=== PATIENT | female | born 1995 | race Two or more races ===

== ENCOUNTER 2021-05-07 14:12 | Outpatient (CLI) | payer OTHER | END 2021-05-07 14:23 | disposition home or self-care (01) | LOC: LAB 14:12 | PROVIDERS: ATTEND Emergency Medicine Pediatric Emergency Medicine | DX: Z03.818 Encounter for observation for suspected exposure to other biological agents ruled out (principal) ==

== ENCOUNTER 2021-06-07 11:21 | Outpatient (CLI) | payer OTHER | END 2021-06-07 12:19 | disposition home or self-care (01) | LOC: LAB 11:21 | PROVIDERS: ATTEND Internal Medicine | DX: Z34.90 Encounter for supervision of normal pregnancy, unspecified, unspecified trimester (principal) ==

== ENCOUNTER 2021-07-22 15:06 | Outpatient (CLI) | payer OTHER | END 2021-07-22 15:07 | disposition home or self-care (01) | LOC: LAB 15:06 | PROVIDERS: ATTEND General Practice | DX: R06.02 Shortness of breath (principal); Z03.818 Encounter for observation for suspected exposure to other biological agents ruled out; Z20.828 Contact with and (suspected) exposure to other viral communicable diseases ==

== ENCOUNTER 2021-07-29 13:48 | Emergency (ER) | payer OTHER ==
[~2021-07-29] VITALS: Ht 152.4 cm; Wt 70.3 kg
== END 2021-07-29 20:07 | disposition home or self-care (01) ==
LOC: ER 13:48
DX: S00.83XA Contusion of other part of head, initial encounter (principal); W18.2XXA Fall in (into) shower or empty bathtub, initial encounter; Y93.E1 Activity, personal bathing and showering; Y92.012 Bathroom of single-family (private) house as the place of occurrence of the external cause; Y99.8 Other external cause status

== ENCOUNTER 2021-08-09 08:00 | Outpatient (CLI) | payer OTHER | END 2021-08-09 08:30 | disposition home or self-care (01) | LOC: PPH VACUNA 08:00 | PROVIDERS: ATTEND Emergency Medicine Pediatric Emergency Medicine | DX: Z23 Encounter for immunization (principal) ==

== ENCOUNTER 2021-09-02 10:51 | Outpatient (CLI) | payer OTHER | END 2021-09-02 10:53 | disposition home or self-care (01) | LOC: SONOGRAMA 10:51 | PROVIDERS: ATTEND Internal Medicine | DX: E04.2 Nontoxic multinodular goiter (principal); R22.1 Localized swelling, mass and lump, neck ==

== ENCOUNTER 2021-09-06 08:00 | Outpatient (CLI) | payer OTHER | END 2021-09-06 15:00 | disposition home or self-care (01) | LOC: LAB 08:00 | PROVIDERS: ATTEND Internal Medicine | DX: E03.8 Other specified hypothyroidism (principal); E11.65 Type 2 diabetes mellitus with hyperglycemia; E78.49 Other hyperlipidemia; I10 Essential (primary) hypertension; E55.9 Vitamin D deficiency, unspecified; E53.8 Deficiency of other specified B group vitamins; N93.1 Pre-pubertal vaginal bleeding ==

== ENCOUNTER 2021-09-15 11:44 | Outpatient (CLI) | payer OTHER | END 2021-09-15 18:00 | disposition home or self-care (01) | LOC: LAB 11:44 | DX: U07.1 COVID-19 (principal) ==

== ENCOUNTER 2021-10-25 13:53 | Outpatient (CLI) | payer OTHER | END 2021-10-25 13:55 | disposition home or self-care (01) | LOC: LAB 13:53 | PROVIDERS: ATTEND Internal Medicine Hematology & Oncology | DX: D50.8 Other iron deficiency anemias (principal); D68.8 Other specified coagulation defects; M32.8 Other forms of systemic lupus erythematosus ==

== ENCOUNTER 2021-11-02 10:44 | Outpatient (CLI) | payer OTHER | END 2021-11-02 10:46 | disposition home or self-care (01) | LOC: LAB 10:44 | PROVIDERS: ATTEND General Practice | DX: D50.8 Other iron deficiency anemias (principal); D68.8 Other specified coagulation defects; M05.80 Other rheumatoid arthritis with rheumatoid factor of unspecified site; M32.8 Other forms of systemic lupus erythematosus; N39.0 Urinary tract infection, site not specified ==

== ENCOUNTER 2021-11-15 11:39 | Outpatient (CLI) | payer OTHER | END 2021-11-15 11:41 | disposition home or self-care (01) | LOC: LAB 11:39 | PROVIDERS: ATTEND Surgery | DX: U07.1 COVID-19 (principal); Z20.828 Contact with and (suspected) exposure to other viral communicable diseases ==

== ENCOUNTER 2021-11-22 08:00 | Outpatient (CLI) | payer OTHER | END 2021-11-22 15:00 | disposition home or self-care (01) | LOC: LAB 08:00 | PROVIDERS: ATTEND Internal Medicine Endocrinology, Diabetes & Metabolism | DX: U07.1 COVID-19 (principal) ==

== ENCOUNTER 2021-12-06 14:08 | Outpatient (CLI) | payer OTHER | END 2021-12-06 14:09 | disposition home or self-care (01) | LOC: LAB 14:08 | PROVIDERS: ATTEND Physical Medicine & Rehabilitation | DX: R05.9 Cough, unspecified (principal); R50.9 Fever, unspecified; R06.02 Shortness of breath; Z03.818 Encounter for observation for suspected exposure to other biological agents ruled out; J12.82 Pneumonia due to coronavirus disease 2019; M35.89 Other specified systemic involvement of connective tissue; Z11.52 Encounter for screening for COVID-19; Z20.822 Contact with and (suspected) exposure to COVID-19 ==

== ENCOUNTER 2021-12-13 14:48 | Outpatient (CLI) | payer OTHER | END 2021-12-13 14:55 | disposition home or self-care (01) | LOC: LAB 14:48 | PROVIDERS: ATTEND Physical Medicine & Rehabilitation | DX: Z11.52 Encounter for screening for COVID-19 (principal) ==

== ENCOUNTER → 2021-12-17 08:26 | Outpatient (CLI) | payer OTHER | END | disposition home or self-care (01) | LOC: LAB 08:10 | PROVIDERS: ATTEND Internal Medicine Hematology & Oncology | DX: D46.A Refractory cytopenia with multilineage dysplasia (principal) ==

== ENCOUNTER → 2021-12-20 09:19 | Outpatient (CLI) | payer OTHER | END | disposition home or self-care (01) | LOC: LAB 08:15 | PROVIDERS: ATTEND General Practice | DX: Z20.828 Contact with and (suspected) exposure to other viral communicable diseases (principal) ==

== ENCOUNTER → 2021-12-27 08:49 | Outpatient (CLI) | payer OTHER | END | disposition home or self-care (01) | LOC: LAB 08:17 | PROVIDERS: ATTEND General Practice | DX: Z11.52 Encounter for screening for COVID-19 (principal) ==

== ENCOUNTER 2022-01-03 14:32 | Outpatient (CLI) | payer OTHER | END 2022-01-03 15:00 | disposition home or self-care (01) | LOC: LAB 14:32 | PROVIDERS: ATTEND General Practice | DX: Z11.52 Encounter for screening for COVID-19 (principal) ==

== ENCOUNTER 2022-01-10 12:12 | Outpatient (CLI) | payer OTHER | END 2022-01-10 12:13 | disposition home or self-care (01) | LOC: LAB 12:12 | PROVIDERS: ATTEND General Practice | DX: Z11.52 Encounter for screening for COVID-19 (principal) ==

== ENCOUNTER → 2022-01-17 08:45 | Outpatient (CLI) | payer OTHER | END | disposition home or self-care (01) | LOC: LAB 07:57 | PROVIDERS: ATTEND General Practice | DX: Z11.52 Encounter for screening for COVID-19 (principal) ==

== ENCOUNTER 2022-01-26 08:00 | Outpatient (CLI) | payer OTHER | END 2022-01-26 15:00 | disposition home or self-care (01) | LOC: LAB 08:00 | PROVIDERS: ATTEND General Practice | DX: Z11.52 Encounter for screening for COVID-19 (principal) ==

== ENCOUNTER → 2022-02-07 15:10 | Outpatient (CLI) | payer OTHER | END | disposition home or self-care (01) | LOC: LAB 08:09 | PROVIDERS: ATTEND General Practice | DX: Z11.52 Encounter for screening for COVID-19 (principal) ==

== ENCOUNTER → 2022-03-07 | Outpatient (CLI) | payer OTHER | END | disposition home or self-care (01) | LOC: LAB 09:07 | PROVIDERS: ATTEND Internal Medicine Hematology & Oncology | DX: D59.2 Drug-induced nonautoimmune hemolytic anemia (principal); D50.8 Other iron deficiency anemias; M35.3 Polymyalgia rheumatica; M32.8 Other forms of systemic lupus erythematosus; D89.1 Cryoglobulinemia; D65 Disseminated intravascular coagulation [defibrination syndrome]; M05.80 Other rheumatoid arthritis with rheumatoid factor of unspecified site; M35.1 Other overlap syndromes ==

== ENCOUNTER → 2022-04-25 07:50 | Outpatient (CLI) | payer OTHER | END | disposition home or self-care (01) | LOC: LAB 07:50 | PROVIDERS: ATTEND Internal Medicine Hematology & Oncology | DX: D64.9 Anemia, unspecified (principal); R53.82 Chronic fatigue, unspecified; L95.9 Vasculitis limited to the skin, unspecified; U09.9 Post COVID-19 condition, unspecified; I10 Essential (primary) hypertension; Z86.16 Personal history of COVID-19 ==

== ENCOUNTER 2022-05-06 07:10 | Emergency (ER) | payer OTHER ==
[~2022-05-06] VITALS: Ht 152.4 cm; Wt 79.4 kg
[2022-05-06] MEDS ORDERED: PEPCID AC20 MG PO (10:52)
[2022-05-06] MEDS ORDERED: OMEPRAZOLE20 M2 PO (10:52)
== END 2022-05-06 11:02 | disposition home or self-care (01) ==
LOC: ER 07:10
DX: R10.13 Epigastric pain (principal)

== ENCOUNTER 2022-06-30 09:04 | Outpatient (CLI) | payer OTHER ==
[~2022-06-30 09:04] MED LIST: OMEPRAZOLE20 M2 PO; PEPCID AC20 MG PO
== END 2022-06-30 14:10 | disposition home or self-care (01) ==
LOC: LAB 09:04
PROVIDERS: ATTEND Obstetrics & Gynecology
DX: D64.9 Anemia, unspecified (principal); E03.9 Hypothyroidism, unspecified; E11.9 Type 2 diabetes mellitus without complications; E55.9 Vitamin D deficiency, unspecified; I10 Essential (primary) hypertension; N30.00 Acute cystitis without hematuria; A64 Unspecified sexually transmitted disease

== ENCOUNTER → 2022-07-19 13:32 | Outpatient (CLI) | payer OTHER | END | disposition home or self-care (01) | LOC: LAB 13:32 | PROVIDERS: ATTEND General Practice | DX: R05.9 Cough, unspecified (principal); R50.9 Fever, unspecified; R06.02 Shortness of breath; Z20.822 Contact with and (suspected) exposure to COVID-19 ==

== ENCOUNTER 2022-08-22 09:39 | Outpatient (CLI) | payer OTHER | END 2022-08-22 09:42 | disposition home or self-care (01) | LOC: LAB 09:39 | PROVIDERS: ATTEND General Practice | DX: Z20.822 Contact with and (suspected) exposure to COVID-19 (principal) ==

== ENCOUNTER 2022-08-29 08:27 | Outpatient (CLI) | payer OTHER | END 2022-08-29 08:28 | disposition home or self-care (01) | LOC: LAB 08:27 | PROVIDERS: ATTEND General Practice | DX: Z20.822 Contact with and (suspected) exposure to COVID-19 (principal) ==

== ENCOUNTER 2022-09-05 07:56 | Outpatient (CLI) | payer OTHER | END 2022-09-05 08:18 | disposition home or self-care (01) | LOC: LAB 07:56 | PROVIDERS: ATTEND General Practice | DX: Z20.822 Contact with and (suspected) exposure to COVID-19 (principal) ==

== ENCOUNTER 2022-09-12 07:07 | Outpatient (CLI) | payer OTHER | END 2022-09-12 07:08 | disposition home or self-care (01) | LOC: LAB 07:07 | PROVIDERS: ATTEND General Practice | DX: Z20.822 Contact with and (suspected) exposure to COVID-19 (principal) ==

== ENCOUNTER 2022-09-21 07:44 | Outpatient (CLI) | payer OTHER | END 2022-09-21 09:12 | disposition home or self-care (01) | LOC: LAB 07:44 | PROVIDERS: ATTEND General Practice | DX: Z20.822 Contact with and (suspected) exposure to COVID-19 (principal) ==

== ENCOUNTER 2022-10-17 11:26 | Outpatient (CLI) | payer OTHER | END 2022-10-17 11:27 | disposition home or self-care (01) | LOC: LAB 11:26 | PROVIDERS: ATTEND Internal Medicine Hematology & Oncology | DX: R53.82 Chronic fatigue, unspecified (principal); L95.9 Vasculitis limited to the skin, unspecified; D64.9 Anemia, unspecified; U09.9 Post COVID-19 condition, unspecified; R74.01 Elevation of levels of liver transaminase levels ==

== ENCOUNTER 2024-09-03 11:24 | Outpatient (CLI) | payer OTHER ==
[2024-09-03 11:54] LABS: HEMATOCRIT 38.5 % (36.0-45.00); HEMOGLOBIN 13.1 g/dL (12.0-15.00); MEAN CELL VOLUME 87.9 fL (80.00-100.00); MEAN CORPUSCULAR HGB CONC 34.1 g/dl (32.0-36.0); PLATELET COUNT 233 K/uL (150-450); RED BLOOD COUNT 4.38 M/uL (4.00-6.00); RED CELL DISTRIBUTION WIDTH 13.8 % (11.5-14.5)
[2024-09-03 12:35] LABS: MYCOPLASMA PNEUMONIAE IGM REACTIVE (NO REACTIVE)
== END 2024-09-03 11:28 | disposition home or self-care (01) ==
LOC: LAB 11:24
PROVIDERS: ATTEND General Practice
DX: R05.9 Cough, unspecified (principal); R50.9 Fever, unspecified; Z11.52 Encounter for screening for COVID-19; J06.9 Acute upper respiratory infection, unspecified; N91.0 Primary amenorrhea

== ENCOUNTER 2025-07-26 08:32 | Outpatient (CLI) | payer OTHER ==
[2025-07-26 10:04] LABS: COVID-19 AG NEGATIVE (NEGATIVE)
[2025-07-26 10:12] LABS: BASO % 0.3 % (0.1-1.2); EOS # 0.50 (0.04-0.54); EOS % 3.6 % (0.7-7.0); LYMPH # 5.14 (1.18-3.74); LYMPH % 36.8 % (19.3-53.1); MEAN PLATELET VOLUME 10.60 fl (9.4-12.4); MONO # 0.81 (0.24-0.82); MONO % 5.8 % (4.7-12.5); NEUT # 7.40 (1.56-6.13); NEUT % 53.0 % (34.0-71.1); RED CELL DISTRIBUTION WIDTH 12.6 % (11.6-14.4)
[2025-07-26 10:41] LABS: MYCOPLASMA PNEUMONIAE IGM REACTIVE (NO REACTIVE)
== END 2025-07-26 08:36 | disposition home or self-care (01) ==
LOC: LAB 08:32
PROVIDERS: ATTEND General Practice
DX: R05.9 Cough, unspecified (principal); R50.9 Fever, unspecified; Z11.52 Encounter for screening for COVID-19; J06.9 Acute upper respiratory infection, unspecified

== ENCOUNTER → 2025-08-30 08:01 | Outpatient (CLI) | payer OTHER ==
[2025-08-30 09:22] LABS: URINE APPEARANCE Clear; URINE BILIRRUBIN Negative (NEGATIVE); URINE BLOOD Negative; URINE COLOR Yellow; URINE GLUCOSE Negative (NEGATIVE); URINE KETONE Negative (NEGATIVE); URINE LEUKOCYTE Negative; URINE NITRATE Negative; URINE PROTEIN Negative (NEGATIVE); URINE UROBILINOGEN 1.0 E.U./dl
[2025-08-30 09:23] LABS: URINE BACTERIA 137.2 uL (0.0-1933); URINE EPITHELIAL CELLS 17.2 uL (0.0-38.8); URINE RBC 7.0 uL (0.0-20.8); URINE WBC 2.7 uL (0.0-23.2)
[2025-08-30 09:24] LABS: URINE CAST 0.00 uL (0.0-1.40)
[2025-08-30 09:27] LABS: BASO % 0.4 % (0.1-1.2); EOS # 0.41 (0.04-0.54); EOS % 4.0 % (0.7-7.0); LYMPH # 3.04 (1.18-3.74); LYMPH % 30.0 % (19.3-53.1); MEAN PLATELET VOLUME 10.40 fl (9.4-12.4); MONO # 0.63 (0.24-0.82); MONO % 6.2 % (4.7-12.5); NEUT # 6.00 (1.56-6.13); NEUT % 59.2 % (34.0-71.1); RED CELL DISTRIBUTION WIDTH 12.2 % (11.6-14.4)
[2025-08-30 10:45] LABS: ALT/SGPT 30.0 U/L (12-78); AST/SGOT 15.0 U/L (15-37); BILIRUBIN TOTAL 0.6 mg/dL (0.3-1.2); BUN CREA RATIO 17.0 (7.0-25.0); CHOL HDL RATIO 4.8 (0-5.0); CREATININE SERUM 0.7 mg/dL (0.55-1.02); FREE TRIODOTIRONINE 3.3 pg/ml (2.18-3.98); GFR 98.25; GLOBULINA 3.0 G/DL (2.4-3.5); GLUCOSE FASTING 81.0 mg/dL (65-100); HDL 51.0 mg/dl (40-60); LDL 168.0 mg/dl (0-130); OSMOLALITY SERUM 282.0 MOSM/KG (275-295); T3 UPTAKE 34.0 % (30-39); T4 FREE 1.0 NG/ML (0.76-1.46); T4 TOTAL 7.43 UG/DL (4.8-13.9); TSH 2.47 uIU/mL (0.358-3.74); VLDL 25.0 (0-39)
[2025-09-01 10:09] LABS: T3 TOTAL 1.24 ng/ml (0.846-2.02)
[2025-09-01 10:10] LABS: VITAMIN D3 25 HYDROXY 23.88 ng/ml (30-120)
[2025-09-02 06:06] LABS: ANTI THYROID PEROXIDASE 21.0 IU/mL (0-34); DHEA-SULFATE 677.0 ug/dL (84.8-378.0); ESTRADIOL SERUM 119.0 pg/mL (.); PROLACTIN 17.7 ng/mL (4.8-33.4)
[2025-09-02 14:07] LABS: anti thy < 1.0 IU/mL (0.0-0.9); tpo 21 IU/mL (0-34)
== END | disposition home or self-care (01) ==
LOC: LAB 08:01
DX: D64.9 Anemia, unspecified (principal); E03.9 Hypothyroidism, unspecified; E11.9 Type 2 diabetes mellitus without complications; N91.1 Secondary amenorrhea; E55.9 Vitamin D deficiency, unspecified; I10 Essential (primary) hypertension; N30.00 Acute cystitis without hematuria